=== PATIENT | female | born 1985 | race Caucasian/White ===

== ENCOUNTER 2020-05-17 05:39 | Inpatient (IN) | payer BC ==
[2020-05-17] MEDS ORDERED: Oxytocin/Lactated Ringers 10 UNIT/1,000 ML BAG IV SCH ×2 (05:45→09:01)
[2020-05-17] MEDS ORDERED: Sodium Chloride 0.9% 10 ML Syringe FLUSH PRN (05:45)
[2020-05-17] MEDS ORDERED: Lactated Ringers 1,000 ML IV SCH (05:45)
[2020-05-17] MEDS ORDERED: Ampicillin 2 GM in Sodium Chloride 0.9% 100 ML IV ONE (05:45)
[2020-05-17] MEDS ORDERED: Nalbuphine 10 MG/ML Syringe IVPUSH PRN (05:45)
[2020-05-17] MEDS ORDERED: Lidocaine 1% 50 ML MDV ONE (06:42)
[2020-05-17] MEDS ORDERED: Lidocaine 1% 50 ML MDV INJECT ONE (06:50)
--- NOTE | 2020-05-17 07:21 | PCM.LDHP ---
L&D History of Present Illness - General Date of Service: 05/17/20 Admit Problem/Dx: Patient Status Order with Admit Dx/Problem 05/17/20 05:46 Patient Status [ADT] Routine Admission Diagnosis/Problem Admission Diagnosis/Problem Vaginal delivery Source of Information: Patient History Limitations: Reports: No Limitations - History of Present Illness Introduction:: Nicolette Garcia is a 34-year-old -0-0-5 at 40 weeks 3 days (XI 05/14/2020) by LMP consistent with 24-week ultrasound who presented in advanced labor. She states that the contractions had started overnight around 3:30 AM but were irregular initially. Over the next 4 hours they became more regular and she presented to the hospital at around 5:30 AM. She denies any leaking of fluid or vaginal bleeding. Reports good movement. Timing/Duration: Reports: sudden onset, getting worse Location, : Reports: Lower back, Pelvic, Uterus Quality: Reports: Pressure, Throbbing Severity: Severe Improves with: Reports: None Worsens with: Reports: None Associated Symptoms: Denies: vaginal bleeding, vaginal discharge, vaginal fluid Present Illness Comments:: Nicolette Garcia is a 34-year-old -0-0-5 at 40 weeks 3 days (XI 05/14/2020) by LMP consistent with 24-week ultrasound who presented in advanced labor. She has had routine care with myself, Dr. Beck starting at 11 weeks gestational age. Her care has been overall uncomplicated. She was given the flu shot on 08/25/2019 and Tdap vaccine on 02/21/2020. She denied any complications throughout the . This is complicated by: * GBS positive * History of 2 other children affected by ataxia-telangiectasia, no testing performed in this * Advanced maternal age, no genetic testing performed in this [employer]BACKUP ADMIN history -0-0-5 G1: 09/30/2006, 39 weeks gestational age, , male , 6 pounds 10 ounces, epidural G2: 06/25/2008, 41 weeks gestational age, , female infant, 6 pounds 8 ounces, epidural G3: 05/12/2010, 39 weeks gestational age, , female infant, G4: 08/16/2013, 40 weeks gestational age, , male infant, 7 pounds 9 ounces, epidural G5: 03/31/2016, 40 weeks 1 day, , female , 7 pounds 13 ounces G6: Current labs Blood type: O+ Antibody screen: Negative First trimester hematocrit/hemoglobin: 41.7%/14.1 on 10/25/2019 Platelets: 319 on 10/25/2019 Urine culture: Mixed jessica suggestive of contamination Rubella status: Immune Hepatitis B surface antigen: Negative RPR: Negative HIV: Negative Gonorrhea: Negative Chlamydia: Negative Anatomy ultrasound: Normal anatomy ultrasound, no abnormalities, 74th percentile, posterior placenta One hour glucose tolerance test: 96 Second trimester hematocrit/hemoglobin: 39.2%/12.9 on 02/21/2020 Platelets: 250 on 02/21/2020 GBS status: Positive - Related Data Allergies/Adverse Reactions: Allergies Allergy/AdvReac Type Severity Reaction Status Date / Time No Known Allergies Allergy Verified 05/17/20 05:45 Home Medications: Home Meds Acetaminophen [Tylenol] 650 mg PO Q4H PRN #0 tablet 04/02/16 [Rx] Benzocaine/Menthol [Dermoplast Pain Relief [place]] 1 spray TOP ASDIRECTED PRN #0 canister 04/02/16 [Rx] Docusate Sodium [Colace] 100 mg PO BID PRN #0 cap 04/02/16 [Rx] Ibuprofen [IJD: Ibuprofen] 200 - 600 mg PO Q4H PRN #0 tablet 04/02/16 [Rx] witch Mandi [Tucks] 1 pad TOP ASDIRECTED PRN #0 pad 04/02/16 [Rx] Past Medical History - Past Health History Medical/Surgical History: Denies Medical/Surgical History 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: Reports: : 6 Para: 5 Social & Family History - Family History Family Medical History: Noncontributory - Tobacco Use Smoking Status *Q: Never Smoker - Tobacco Core Measures Tobacco Use/Smoking Within Last 30 Days: No Smokeless Tobacco Use in Last 30 Days: No - Caffeine Use Caffeine Use: Reports: None - Alcohol Use Alcohol Use History: No - Recreational Drug Use Recreational Drug Use: No - Living Situation & Occupation Living situation: Reports: , with Spouse, with Family H&P Review of Systems - Review of Systems: Review Of Systems: See Below General: Denies: Fever, Chills, Malaise, Weakness, Fatigue HEENT: Denies: Headaches, Rhinitis, Post Nasal Drip, Sinus Congestion, Sore Throat, Visual Changes Pulmonary: Denies: Shortness of Breath, Wheezing, Pleuritic Chest Pain, Cough Cardiovascular: Denies: Chest Pain, Palpitations, Dyspnea on Exertion, Orthopnea Gastrointestinal: Denies: Abdominal Pain, Constipation, Diarrhea, Nausea, Vomiting Genitourinary: Denies: Dysuria, Frequency, Burning, Pain, Urgency Skin: Denies: Rash, Lesions Psychiatric: Denies: Depression, Anxiety L&D Exam - Exam Exam: See Below - Vital Signs Weight: 79.379 kg - OB Specific Contraction Duration (sec): 45-60 Contraction Frequency (min): 2-3 Contraction Intensity: Strong Movement: Active Heart Tones: Present Heart Tones per Min: 145 (+15 x 15 accelerations, no decelerations) Heart Rate (FHR) Variability: Moderate (6-25 bmp) Presentation: Vertex - Kat Score Kat Score Cervix Position: Anterior Kat Score Consistency: Soft Kat Score Effacement: >80% (100%) Kat Score Dilation: > 5 cm (8 cm) Kat Score Infant's Station: +1, +2 Kat Score Total: 13 - Exam General: Alert, Oriented HEENT: Conjunctiva Clear, EOMI Neck: Supple, Trachea Midline Lungs: Normal Respiratory Effort Cardiovascular: Regular Rate GI/Abdominal Exam: Soft, No Distention, Other (Gravid). No: Guarding, Rigid, Rebound Genitourinary: Normal external exam Skin: Warm, Dry, Intact Psychiatric: Alert, Normal Affect, Normal Mood - Problem List (1) 40 weeks gestation of SNOMED Code(s): 98141679 ICD Code: Z3A.40 - 40 WEEKS GESTATION OF Status: Acute Current Visit: No (2) GBS (group B Streptococcus carrier), +RV culture, currently SNOMED Code(s): 7433677693963, 379971740, 4037561494760 ICD Code: O99.820 - STREPTOCOCCUS B CARRIER STATE COMPLICATING Status: Acute Current Visit: No Problem List Initiated/Reviewed/Updated: Yes Orders Last 24hrs: Active Orders 24 hr Category Date Time Status Patient Status Manage Transfer [TRANSFER] Routine ADT 05/17/20 07:06 Ordered Patient Status [ADT] Routine ADT 05/17/20 05:46 Active Activity as Tolerated [RC] PFP Care 05/17/20 05:45 Active Communication Order [RC] ASDIRECTED Care 05/17/20 05:45 Active Heart Tones [RC] ASDIRECTED Care 05/17/20 05:46 Active Non Stress Test [RC] PER UNIT ROUTINE Care 05/17/20 05:45 Active Notify Provider [RC] PFP Care 05/17/20 05:45 Active Notify Provider [RC] PRN Care 05/17/20 05:45 Active Peripheral IV Care [RC] . DIRECTED Care 05/17/20 05:46 Active Vital Signs [RC] PER UNIT ROUTINE Care 05/17/20 05:45 Active Regular Diet [DIET] Diet 05/17/20 Breakfast Active CBC WITH AUTO DIFF [HEME] Stat Lab 05/17/20 05:45 Ordered RAPID PLASMA REAGIN,RPR [CHEM] Routine Lab 05/17/20 05:45 Ordered Ampicillin 1 gm Med 05/17/20 10:00 Active Sodium Chloride 0.9% [Normal Saline] 100 ml IV Q4H Lactated Ringers [Ringers, Lactated] 1,000 ml Med 05/17/20 05:45 Active IV ASDIRECTED Nalbuphine [Nubain] Med 05/17/20 05:45 Active 10 mg IVPUSH Q2H PRN Oxytocin/Lactated Ringers [Pitocin in LR 10 Units/1,000 Med 05/17/20 05:45 Active ML] 10 unit in 1,000 ml IV .CONTINUOUS Sodium Chloride 0.9% [Saline Flush] Med 05/17/20 05:45 Active 10 ml FLUSH ASDIRECTED PRN Electronic Heart Tones Ext w TOCO [WOMSER] Oth 05/17/20 05:45 Ordered Routine Electronic Heart Tones Internal [WOMSER] Per Unit Oth 05/17/20 05:45 Ordered Routine Peripheral IV Insertion Adult [OM.PC] Routine Oth 05/17/20 05:45 Ordered Resuscitation Status Routine Resus Stat 05/17/20 05:45 Ordered Medication Orders Ampicillin Sodium 1 gm/ Sodium (Chloride) 100 mls @ 200 mls/hr IV Q4H KLAUDIA Oxytocin/Lactated Ringer's (Pitocin In Lr 10 Units/1,000 Ml) 10 unit in 1,000 mls @ 500 mls/hr IV .CONTINUOUS KLAUDIA Last Admin: 05/17/20 06:39 Dose: 500 mls/hr Documented by: NOAM Lactated Ringer's (Ringers, Lactated) 1,000 mls @ 100 mls/hr IV ASDIRECTED KLAUDIA Last Admin: 05/17/20 05:55 Dose: 100 mls/hr Documented by: NOAM Nalbuphine HCl (Nubain) 10 mg IVPUSH Q2H PRN PRN Reason: Pain Sodium Chloride (Saline Flush) 10 ml FLUSH ASDIRECTED PRN PRN Reason: Keep Vein Open Assessment/Plan Comment:: Refer to observation for spontaneous labor with advanced cervical dilation of 8 cm and regular contractions Continuous monitoring Place IV and have Lactated Ringer's at 125 ml/hr May have small amounts of regular diet Activity as tolerated Plans to breast-feed after delivery Start on ampicillin 2 g now and have 1 g every 4 hours after for GBS prophylaxis Anticipate vaginal delivery unless otherwise indicated Admission H&P written after delivery due to advanced dilation of the patient and precipitous progression to complete and delivery. Francisco Beck MD 7:25 AM 05/17/2020
--- NOTE | 2020-05-17 07:34 | PCM.DEL ---
L & D Note - General Info Date of Service: 05/17/20 Mother's Due Date: 05/14/20 - Delivery Note Labor: Spontaneous Delivery Method: Spontaneous Vaginal Delivery-Single Presentation: Right Occiput Anterior (SUNDEEP) Nuchal Cord: None Anesthesia Type: Local Anesthetic: Lidocaine (Xylocaine) 1% Plain Local Anesthetic Volume: Other (8 ml) Amniotic Fluid Description: Meconium Stained Episiotomy Type: None Laceration: 2nd Degree (midline perineal, repaired with 3-0 Vicryl) Suture type: Vicryl Suture size: 3-0 Placenta: Intact, Spontaneous Cord: 3 Vessels Estimated Blood Loss: 200 Resuscitation Needed: Yes Raymond: Suctioned, Bulb Syringe, Stimulated, Warmed, Baxter Used, Warmer Used Provider: Francisco Beck Score 1 min: 8 Score 5 min: 9 Second Stage Interventions: Reports: Pushing Effectively, Pushing, Stirrups/Leg Supports Delivery Comments (Free Text/Narrative):: Stage I: Nicolette Garcia was admitted for advanced labor with contractions. On admission her cervix was dilated to 8 cm. She was GBS positive and was started on ampicillin and received 1 dose prior to delivery approximately 45 minutes prior to delivery of the . She progressed to complete. She had artificial rupture membranes with return of meconium-stained fluid. She began pushing. Stage II: On 05/17/2020 she had a normal vaginal delivery of a live female infant at 06:35. Apgars of 8 & 9. Weight of 3510 g (7 lbs 11.8 oz). Length of 20 inches. There was no nuchal cord. Infant was delivered in SUNDEEP position. The cord was doubly clamped and cut by father the infant. Infant was placed on mother's abdomen and then taken to the warmer for additional resuscitation. Stage III: She had a spontaneous delivery of an intact placenta in [place] presentation. Three vessel cord. She was given pitocin and fundal massage. She had a second-degree midline perineal laceration that was repaired with 3-0 Vicryl. Mom and baby were stable to recovery. EBL of 200 mL. Francisco Beck MD 7:30 AM 05/17/2020 - General Info Date of Service: 05/17/20 - Patient Data Weight - Most Recent: 79.379 kg Med Orders - Current: Current Medications Ampicillin Sodium 1 gm/ Sodium (Chloride) 100 mls @ 200 mls/hr IV Q4H KLAUDIA Oxytocin/Lactated Ringer's (Pitocin In Lr 10 Units/1,000 Ml) 10 unit in 1,000 mls @ 500 mls/hr IV .CONTINUOUS KLAUDIA Last Admin: 05/17/20 06:39 Dose: 500 mls/hr Documented by: Lactated Ringer's (Ringers, Lactated) 1,000 mls @ 100 mls/hr IV ASDIRECTED KLAUDIA Last Admin: 05/17/20 05:55 Dose: 100 mls/hr Documented by: Nalbuphine HCl (Nubain) 10 mg IVPUSH Q2H PRN PRN Reason: Pain Sodium Chloride (Saline Flush) 10 ml FLUSH ASDIRECTED PRN PRN Reason: Keep Vein Open Discontinued Medications Ampicillin Sodium 2 gm/ Sodium (Chloride) 100 mls @ 200 mls/hr IV ONETIME ONE Stop: 05/17/20 06:14 Last Admin: 05/17/20 05:57 Dose: 200 mls/hr Documented by: Lidocaine HCl (Xylocaine 1%) Confirm Administered Dose 50 ml .ROUTE .STK-MED ONE Stop: 05/17/20 06:43 Lidocaine HCl (Xylocaine 1%) 50 ml INJECT ONETIME ONE Stop: 05/17/20 06:51 Last Admin: 05/17/20 06:50 Dose: 50 ml Documented by: - Problem List & Annotations (1) 40 weeks gestation of SNOMED Code(s): 30780930 Code(s): Z3A.40 - 40 WEEKS GESTATION OF Status: Acute Current Visit: No (2) GBS (group B Streptococcus carrier), +RV culture, currently SNOMED Code(s): 4212341100913, 716486741, 6806643457022 Code(s): O99.820 - STREPTOCOCCUS B CARRIER STATE COMPLICATING Status: Acute Current Visit: No (3) Vaginal delivery SNOMED Code(s): 147171814 Code(s): O80 - ENCOUNTER FOR FULL-TERM UNCOMPLICATED DELIVERY Status: Acute Current Visit: Yes (4) Second degree perineal laceration during delivery SNOMED Code(s): 1214125 Code(s): O70.1 - SECOND DEGREE PERINEAL LACERATION DURING DELIVERY Status: Acute Current Visit: Yes (5) Meconium stained amniotic fluid, delivered, current hospitalization SNOMED Code(s): 962571532, 518390405 Code(s): O77.0 - LABOR AND DELIVERY COMPLICATED BY MECONIUM IN AMNIOTIC FLUID Status: Acute Current Visit: No - Problem List Review Problem List Initiated/Reviewed/Updated: Yes - My Orders Last 24 Hours: My Active Orders 05/17/20 05:45 Activity as Tolerated [RC] PFP Communication Order [RC] ASDIRECTED Non Stress Test [RC] PER UNIT ROUTINE Notify Provider [RC] PFP Notify Provider [RC] PRN Vital Signs [RC] PER UNIT ROUTINE CBC WITH AUTO DIFF [HEME] Stat RAPID PLASMA REAGIN,RPR [CHEM] Routine Lactated Ringers [Ringers, Lactated] 1,000 ml IV ASDIRECTED Nalbuphine [Nubain] 10 mg IVPUSH Q2H PRN Oxytocin/Lactated Ringers [Pitocin in LR 10 Units/1,000 ML] 10 unit in 1,000 ml IV .CONTINUOUS Sodium Chloride 0.9% [Saline Flush] 10 ml FLUSH ASDIRECTED PRN Electronic Heart Tones Ext w TOCO [WOMSER] Routine Electronic Heart Tones Internal [WOMSER] Per Unit Routine Peripheral IV Insertion Adult [OM.PC] Routine Resuscitation Status Routine 05/17/20 05:46 Patient Status [ADT] Routine Heart Tones [RC] ASDIRECTED Peripheral IV Care [RC] . DIRECTED 05/17/20 Breakfast Regular Diet [DIET] 05/17/20 07:06 Patient Status Manage Transfer [TRANSFER] Routine 05/17/20 10:00 Ampicillin 1 gm Sodium Chloride 0.9% [Normal Saline] 100 ml IV Q4H - Plan Plan:: Admit to inpatient following normal spontaneous vaginal delivery Continue Pitocin per unit protocol following delivery of placenta and lactated Ringer's until tolerating regular diet Regular diet Vitals per unit routine Ibuprofen and Tylenol for pain control Assist with breast-feeding as needed Continue to monitor lochia Anticipate discharge home on day #2 Francisco Beck MD 7:30 AM 05/17/2020
[2020-05-17] MEDS ORDERED: Witch Hazel Medicated Pads 40/Jar TOP PRN (09:01)
[2020-05-17] MEDS ORDERED: Acetaminophen 325 MG Tab PO PRN (09:01)
[2020-05-17] MEDS ORDERED: Hydrocortisone Acetate 25 MG Supp RECTAL PRN (09:01)
[2020-05-17] MEDS ORDERED: Ibuprofen 600 MG Tab PO PRN (09:01)
[2020-05-17] MEDS ORDERED: Benzocaine/Menthol 20%-0.5% Spray 56 GM Canister TOP PRN (09:01)
[2020-05-17] MEDS: Prenatal Multivitamin with Calcium/Folic Acid/Iron Tab PO SCH (09:13)
[2020-05-17] MEDS ORDERED: Ampicillin 1 GM in Sodium Chloride 0.9% 100 ML IV SCH (10:00)
--- NOTE | 2020-05-18 06:56 | PCM.PNPP ---
- General Info Date of Service: 05/18/20 Functional Status: Reports: Pain Controlled, Tolerating Diet, Ambulating, Urinating - Review of Systems General: Reports: No Symptoms Pulmonary: Reports: No Symptoms Cardiovascular: Reports: No Symptoms Gastrointestinal: Reports: No Symptoms Genitourinary: Reports: No Symptoms Musculoskeletal: Reports: No Symptoms Neurological: Reports: No Symptoms - General Info Date of Service: 05/18/20 - Patient Data Vital Signs - Most Recent: Last Vital Signs Temp 36.3 C 05/18/20 04:21 Pulse 48 L 05/18/20 04:21 Resp 14 05/18/20 04:21 BP 92/49 L 05/18/20 04:21 Pulse Ox 100 05/18/20 04:21 Weight - Most Recent: 79.379 kg I&O - Last 24 Hours: Intake & Output 05/17/20 05/17/20 05/18/20 14:59 22:59 06:59 Intake Total 1000 Balance 1000 Lab Results - Last 24 Hours: Laboratory Results - last 24 hr 05/17/20 05/17/20 Range/Units 07:24 07:24 WBC 13.19 H (3.98-10.04) K/mm3 RBC 4.56 (3.98-5.22) M/mm3 Hgb 13.7 (11.2-15.7) gm/dl Hct 41.5 (34.1-44.9) % MCV 91.0 (79.4-94.8) fl MCH 30.0 (25.6-32.2) pg MCHC 33.0 (32.2-35.5) g/dl RDW Std Deviation 44.4 (36.4-46.3) fL Plt Count 220 (182-369) K/mm3 MPV 10.8 (9.4-12.3) fl Neut % (Auto) 89.7 H (34.0-71.1) % Lymph % (Auto) 5.1 L (19.3-51.7) % [place] % (Auto) 4.6 L (4.7-12.5) % Eos % (Auto) 0.2 L (0.7-5.8) Baso % (Auto) 0.2 (0.1-1.2) % Neut # (Auto) 11.84 H (1.56-6.13) K/mm3 Lymph # (Auto) 0.67 L (1.18-3.74) K/mm3 [place] # (Auto) 0.61 H (0.24-0.36) K/mm3 Eos # (Auto) 0.02 L (0.04-0.36) K/mm3 Baso # (Auto) 0.02 (0.01-0.08) K/mm3 Manual Slide Review Abnormal smear RPR Non-reactive (NONREACTIVE) Med Orders - Current: Current Medications Acetaminophen (Tylenol) 650 mg PO Q6H PRN PRN Reason: mild pain or fever Benzocaine/Menthol (Dermoplast Pain Relief [place]) 0 gm TOP ASDIRECTED PRN PRN Reason: Perineal Comfort Measure Last Admin: 05/17/20 09:12 Dose: 1 applic Documented by: Hydrocortisone Acetate (Anucort-Hc) 25 mg RECTAL BID PRN PRN Reason: Hemorrhoid pain Oxytocin/Lactated Ringer's (Pitocin In Lr 10 Units/1,000 Ml) 10 unit in 1,000 mls @ 100 mls/hr IV TITRATE KLAUDIA; Protocol Ibuprofen (Motrin) 600 mg PO Q6H PRN PRN Reason: Mild pain or fever Prenat Multivit/[place]/Iron/Folic Ac ( Plus Iron) 1 each PO DAILY KLAUDIA Last Admin: 05/17/20 09:13 Dose: 1 each Documented [facility]: [facility] 1 pad TOP ASDIRECTED PRN PRN Reason: Perineal Comfort Measure Last Admin: 05/17/20 09:12 Dose: 1 applic Documented by: Discontinued Medications Ampicillin Sodium 2 gm/ Sodium (Chloride) 100 mls @ 200 mls/hr IV ONETIME ONE Stop: 05/17/20 06:14 Last Admin: 05/17/20 05:57 Dose: 200 mls/hr Documented by: Ampicillin Sodium 1 gm/ Sodium (Chloride) 100 mls @ 200 mls/hr IV Q4H KLAUDIA Oxytocin/Lactated Ringer's (Pitocin In Lr 10 Units/1,000 Ml) 10 unit in 1,000 mls @ 500 mls/hr IV .CONTINUOUS KLAUDIA Last Admin: 05/17/20 06:39 Dose: 500 mls/hr Documented by: Lactated Ringer's (Ringers, Lactated) 1,000 mls @ 100 mls/hr IV ASDIRECTED KLAUDIA Last Admin: 05/17/20 05:55 Dose: 100 mls/hr Documented by: Lidocaine HCl (Xylocaine 1%) Confirm Administered Dose 50 ml .ROUTE .STK-MED ONE Stop: 05/17/20 06:43 Lidocaine HCl (Xylocaine 1%) 50 ml INJECT ONETIME ONE Stop: 05/17/20 06:51 Last Admin: 05/17/20 06:50 Dose: 50 ml Documented by: Nalbuphine HCl (Nubain) 10 mg IVPUSH Q2H PRN PRN Reason: Pain Sodium Chloride (Saline Flush) 10 ml FLUSH ASDIRECTED PRN PRN Reason: Keep Vein Open - Infant Interaction Disposition, : Warden in Room with Family Infant Interaction: Holding Infant Infant Feeding: Breastfed Infant; Nursed Well Support Person: - Recovery Exam Fundal Tone: Firm Fundal Level: 3 Fingerbreadths Below Umbilicus Fundal Placement: Midline Lochia Amount: Scant, Small Lochia Color: Rubra/Red Perineum Description: Other (see below) Other Perinuem Description: 2nd dgre w/repair Episiotomy/Laceration: Approximated Bladder Status: Nonpalpable, Voiding Urinary Elimination: Voided - Exam General: Alert, Oriented, Cooperative GI/Abdominal Exam: Soft, Non-Tender Extremities: Normal Inspection Skin: Warm, Dry, Intact - Problem List & Annotations (1) Vaginal delivery SNOMED Code(s): 541208759 Code(s): O80 - ENCOUNTER FOR FULL-TERM UNCOMPLICATED DELIVERY Status: Acute Current Visit: Yes - Problem List Review Problem List Initiated/Reviewed/Updated: Yes - Assessment Assessment:: PPD#1 - Plan Plan:: Routine care Breast feeding Discharge home today vs tomorrow
--- NOTE | 2020-05-18 09:23 | PCM.DCSUM1 ---
Discharge Summary - Discharge Data Discharge Date: 05/18/20 Discharge Disposition: Home, Self-Care 01 Condition: Good - Referral to Home Health Primary Care Physician: Francisco Beck MD - Discharge Diagnosis/Problem(s) (1) Vaginal delivery SNOMED Code(s): 733838554 ICD Code: O80 - ENCOUNTER FOR FULL-TERM UNCOMPLICATED DELIVERY Status: Acute Current Visit: Yes - Patient Summary/Data Complications: None Consults: None Recommended Follow-up Testing/Procedures: Follow up with Dr. Beck in 2-3 weeks Hospital Course: 34 y/o presented at 40 3/7 wks in labor. Underwent uncomplicated . See delivery note. did well and was discharged home on PPD#1 per her request - Patient Instructions Diet: Regular Diet as Tolerated Activity: As Tolerated Activity, Other: Pelvic rest for 6 weeks Driving: May Drive Today Showering/Bathing: May Shower Showering/Bathing, Other: May Bathe Notify Provider of: Fever, Increased Pain, Swelling and Redness, Drainage, Nausea and/or Vomiting - Discharge Plan *PRESCRIPTION DRUG MONITORING PROGRAM REVIEWED*: No *COPY OF PRESCRIPTION DRUG MONITORING REPORT IN PATIENT ROSA M: No Home Medications: Home Meds Acetaminophen [Tylenol] 650 mg PO Q4H PRN #0 tablet 04/02/16 [Rx] Benzocaine/Menthol [Dermoplast Pain Relief [place]] 1 spray TOP ASDIRECTED PRN #0 canister 04/02/16 [Rx] Docusate Sodium [Colace] 100 mg PO BID PRN #0 cap 04/02/16 [Rx] Ibuprofen [IJD: Ibuprofen] 200 - 600 mg PO Q4H PRN #0 tablet 04/02/16 [Rx] witch Mandi [Tucks] 1 pad TOP ASDIRECTED PRN #0 pad 04/02/16 [Rx] Referrals: Francisco Beck MD [Primary Care Provider] - (2-3 weeks for check ) - Discharge Summary/Plan Comment DC Time >30 min.: No - Patient Data Vitals - Most Recent: Last Vital Signs Temp 36.3 C 05/18/20 04:21 Pulse 48 L 05/18/20 04:21 Resp 14 05/18/20 04:21 BP 92/49 L 05/18/20 04:21 Pulse Ox 100 05/18/20 04:21 Weight - Most Recent: 79.379 kg Lab Results - Last 24 hrs: Laboratory Results - last 24 hr 05/17/20 Range/Units 07:24 RPR Non-reactive (NONREACTIVE) Med Orders - Current: Current Medications Acetaminophen (Tylenol) 650 mg PO Q6H PRN PRN Reason: mild pain or fever Benzocaine/Menthol (Dermoplast Pain Relief [place]) 0 gm TOP ASDIRECTED PRN PRN Reason: Perineal Comfort Measure Last Admin: 05/17/20 09:12 Dose: 1 applic Documented by: Hydrocortisone Acetate (Anucort-Hc) 25 mg RECTAL BID PRN PRN Reason: Hemorrhoid pain Oxytocin/Lactated Ringer's (Pitocin In Lr 10 Units/1,000 Ml) 10 unit in 1,000 mls @ 100 mls/hr IV TITRATE KLAUDIA; Protocol Ibuprofen (Motrin) 600 mg PO Q6H PRN PRN Reason: Mild pain or fever Prenat Multivit/[place]/Iron/Folic Ac ( Plus Iron) 1 each PO DAILY KLAUDIA Last Admin: 05/17/20 09:13 Dose: 1 each Documented [facility]: [facility] 1 pad TOP ASDIRECTED PRN PRN Reason: Perineal Comfort Measure Last Admin: 05/17/20 09:12 Dose: 1 applic Documented by: Discontinued Medications Ampicillin Sodium 2 gm/ Sodium (Chloride) 100 mls @ 200 mls/hr IV ONETIME ONE Stop: 05/17/20 06:14 Last Admin: 05/17/20 05:57 Dose: 200 mls/hr Documented by: Ampicillin Sodium 1 gm/ Sodium (Chloride) 100 mls @ 200 mls/hr IV Q4H KLAUDIA Oxytocin/Lactated Ringer's (Pitocin In Lr 10 Units/1,000 Ml) 10 unit in 1,000 mls @ 500 mls/hr IV .CONTINUOUS KLAUDIA Last Admin: 05/17/20 06:39 Dose: 500 mls/hr Documented by: Lactated Ringer's (Ringers, Lactated) 1,000 mls @ 100 mls/hr IV ASDIRECTED KLAUDIA Last Admin: 05/17/20 05:55 Dose: 100 mls/hr Documented by: Lidocaine HCl (Xylocaine 1%) Confirm Administered Dose 50 ml .ROUTE .STK-MED ONE Stop: 07/10/20 06:43 Lidocaine HCl (Xylocaine 1%) 50 ml INJECT ONETIME ONE Stop: 05/17/20 06:51 Last Admin: 05/17/20 06:50 Dose: 50 ml Documented by: Nalbuphine HCl (Nubain) 10 mg IVPUSH Q2H PRN PRN Reason: Pain Sodium Chloride (Saline Flush) 10 ml FLUSH ASDIRECTED PRN PRN Reason: Keep Vein Open
[2020-05-18 09:54] VITALS: BP 108/60; PULSE 52
[2020-05-18] MEDS: Prenatal Multivitamin with Calcium/Folic Acid/Iron Tab PO SCH (10:06)
== END 2020-05-18 10:42 | disposition home or self-care (01) | DRG 560 ==
LOC: JD.OBCHECK 05:39 → JD.OB 05:39 → JD.OBCHECK 05:45 → JD.OB 05:46 → OBSVTOIN 06:35 → JD.MS 06:36 → JD.OB 11:17
PROVIDERS: ADMIT Obstetrics & Gynecology; ATTEND Obstetrics & Gynecology
PROC: 10E0XZZ Delivery of Products of Conception, External Approach (ICD-10-PCS; principal; 2020-05-17)
PROC: 0KQM0ZZ Repair Perineum Muscle, Open Approach (ICD-10-PCS; 2020-05-17)
DX: O48.0 Post-term pregnancy (principal); Z37.0 Single live birth; Z3A.40 40 weeks gestation of pregnancy; O70.1 Second degree perineal laceration during delivery; O99.824 Streptococcus B carrier state complicating childbirth; O77.0 Labor and delivery complicated by meconium in amniotic fluid
CPT/HCPCS: 36415; 59025; 59409; 85025; 86592; A9270-GY; J0290; J2001; J2590; J7050; J7120

== ENCOUNTER 2024-07-14 17:22 | Inpatient (IN) | payer BC ==
[2024-07-14] MEDS: Lactated Ringers 1,000 ML IV SCH (17:35)
[2024-07-14] MEDS: Ampicillin 2 GM in Sodium Chloride 0.9% 100 ML IV ONE (17:36)
[2024-07-14 17:50] LABS: BASOPHILS PERCENT AUTO 0.2 % (0.0-1.0); EOSINOPHILS PERCENT AUTO 0.3 % (0.0-6.0); HEMATOCRIT 41.6 % (37.0-47.0); HEMOGLOBIN 14.3 gm/dl (12.0-16.0); IMMATURE GRAN PERCENT AUTO 0.8 % (0.0-0.4); LYMPHOCYTES ABSOLUTE AUTO 1.9 K/mm3 (1.0-4.8); LYMPHOCYTES PERCENT AUTO 14.5 % (24.0-44.0); MEAN CORPUSCULAR HEMOGLOBIN 30.8 pg (28.0-32.0); MEAN CORPUSCULAR HGB CONC 34.4 g/dl (32.0-36.0); MEAN CORPUSCULAR VOLUME 89.5 fl (83.0-99.0); MEAN PLATELET VOLUME 11.1 fl (9.4-12.3); MONOCYTES PERCENT AUTO 7.3 % (0.0-8.0); NEUTROPHILS ABSOLUTE AUTO 10.2 K/mm3 (1.8-7.7); NEUTROPHILS PERCENT AUTO 76.9 % (41.0-71.0); PLATELET COUNT,PLT 235 K/mm3 (150-400); RED BLOOD CELL COUNT 4.65 M/mm3 (4.10-5.30); WHITE BLOOD CELL COUNT,WBC 13.22 K/mm3 (3.9-11.3)
[2024-07-14] MEDS: Lidocaine 1% 50 ML MDV INJECT PRN (19:32)
[2024-07-14] MEDS: Oxytocin/0.9 % Sodium Chloride 30 UNIT/500 ML BAG IV SCH (19:32)
[2024-07-14] MEDS: Oxytocin 10 Units/1 ML SDV IM ONE (19:54)
[2024-07-14] MEDS ORDERED: Ibuprofen 600 MG Tab PO PRN (20:11)
[2024-07-14] MEDS: Acetaminophen 325 MG Tab PO SCH (21:00)
[2024-07-14] MEDS: Witch Hazel Medicated Pads 40/Jar TOP PRN (21:02)
[2024-07-14] MEDS: Benzocaine/Menthol 20%-0.5% Spray 78 GM Cannister TOP PRN (21:02)
[2024-07-14] MEDS ORDERED: Ampicillin 1 GM in Sodium Chloride 0.9% 100 ML IV SCH (22:00)
[2024-07-16 15:24] VITALS: BP 123/73; PULSE 53
== END 2024-07-16 13:00 | disposition home or self-care (01) | DRG 560 ==
LOC: JD.OBCHECK 17:22 → JD.OB 17:25 → JD.OBCHECK 17:37 → OBSVTOIN 19:25 → JD.OB 19:26
PROVIDERS: ADMIT Obstetrics & Gynecology; ATTEND Obstetrics & Gynecology
PROC: 10E0XZZ Delivery of Products of Conception, External Approach (ICD-10-PCS; principal; 2024-07-14)
PROC: 0KQM0ZZ Repair Perineum Muscle, Open Approach (ICD-10-PCS; 2024-07-14)
DX: O99.824 Streptococcus B carrier state complicating childbirth (principal); Z3A.40 40 weeks gestation of pregnancy; Z37.0 Single live birth; O70.1 Second degree perineal laceration during delivery
CPT/HCPCS: 36415; 59025; 59409; 85025; 86592; 86850; 86900; 86901; J0290; J2001; J3490; J7120; J7999